=== PATIENT | male | born 1970 | race Two or more races ===

== ENCOUNTER 2021-03-01 18:21 | Emergency (ER) | payer OTHER ==
[~2021-03-01] VITALS: Ht 167.6 cm; Wt 68.0 kg
[2021-03-01] MEDS ORDERED: TDAP [DIPH/PERTUSSIS/TET] 0.5 ML VIAL IM ONE ×2 (19:00→20:40)
[2021-03-01] MEDS ORDERED: IBUP-1955 PO (20:36)
[2021-03-01] MEDS ORDERED: AMOX-430 PO (20:36)
--- NOTE | 2021-03-01 21:03 | NUR ---
Patient discharged with law enforcment in stable condition. Written and verbal after care instructions given. Patient verbalizes understanding of instruction.
[2021-03-01 21:04] VITALS: BP 137/80
== END 2021-03-01 21:04 ==
LOC: ER 18:28
DX: S02.832A Fracture of medial orbital wall, left side, initial encounter for closed fracture (principal); S02.2XXA Fracture of nasal bones, initial encounter for closed fracture; F20.9 Schizophrenia, unspecified; Y08.89XA Assault by other specified means, initial encounter; Y93.89 Activity, other specified; Y92.89 Other specified places as the place of occurrence of the external cause; Y99.8 Other external cause status
CPT/HCPCS: 70450-TC; 70486-TC; 90715